=== PATIENT | female | born 1955 | race Caucasian/White ===

== ENCOUNTER 2017-11-09 13:00 | Emergency (ER) | payer OTHER ==
[~2017-11-09] VITALS: Ht 162.6 cm; Wt 63.5 kg
[~2017-11-09 13:00] MED LIST: CIPRO500 M1 PO; CLINDAMYCIN HC300 M1 PO
[2017-11-09 13:08] VITALS: BP 124/75
== END 2017-11-09 14:16 | disposition admitted as inpatient to this hospital (09) ==
LOC: ERH 13:00
DX: R21 Rash and other nonspecific skin eruption (principal)